=== PATIENT | female | born 1985 | race Caucasian/White ===

== ENCOUNTER 2018-11-06 09:53 | Emergency (ER) | payer SELFPAY ==
[~2018-11-06] VITALS: Ht 160 cm; Wt 72.6 kg
[2018-11-06 10:05] VITALS: Ht 160 cm; Wt 72.6 kg
[2018-11-06 13:34] VITALS: BP 104/71
== END 2018-11-06 13:34 | disposition short-term general hospital (02) ==
LOC: ED 09:53
DX: S42.401A Unspecified fracture of lower end of right humerus, initial encounter for closed fracture (principal); S52.501A Unspecified fracture of the lower end of right radius, initial encounter for closed fracture; Z98.51 Tubal ligation status; Z88.0 Allergy status to penicillin; V49.49XA Driver injured in collision with other motor vehicles in traffic accident, initial encounter; Y93.I9 Activity, other involving external motion; Y92.413 State road as the place of occurrence of the external cause; Y99.8 Other external cause status
CPT/HCPCS: J2270; J2405; Q0092